=== PATIENT | male | born 1945 | race Caucasian/White ===

== ENCOUNTER → 2023-05-05 | Outpatient (CLI) | payer MEDICARE ==
[~2023-05-05] MED LIST: ATOR40TA69 PO; ESCI-8 PO; FERS325 PO; LOSA50TA64 PO; METO-408 PO; NORT25CA3 PO; NORT50CA PO; OXYC5TAB3 PO; TAMS-1 PO
== END | disposition home or self-care (01) ==
LOC: RAH 14:27 → EDUNIT# 14:30
PROVIDERS: ATTEND Internal Medicine Cardiovascular Disease
DX: I08.3 Combined rheumatic disorders of mitral, aortic and tricuspid valves (principal); R06.00 Dyspnea, unspecified; I49.5 Sick sinus syndrome; I77.810 Thoracic aortic ectasia
CPT/HCPCS: 93306

== ENCOUNTER 2023-05-06 09:29 | Day surgery (SDC) | payer MEDICARE ==
[2023-05-05 15:18] LABS: BASOPHILS # (AUTO) 0.07 K/uL (0.00-0.20); BASOPHILS % (AUTO) 0.7 % (0.0-5.0); EOSINOPHILS # (AUTO) 0.18 K/uL (0.00-0.70); EOSINOPHILS % (AUTO) 1.9 % (0.0-8.0); HEMATOCRIT 37.3 % (42-54); IMMATURE GRANULOCYTE ABSOLUTE 0.03 K/uL (0-1); LYMPHOCYTES % (AUTO) 31.4 % (21.0-51.0); MEAN CORPUSCULAR HEMOGLOBIN 34.7 pg (27.0-33.0); MEAN CORPUSCULAR HGB CONC 33.2 g/dL (32.0-36.0); MEAN CORPUSCULAR VOLUME 104.5 fL (79-99); MONOCYTES # (AUTO) 1.2 K/uL (0.1-1.0); MONOCYTES % (AUTO) 12.7 % (3.0-13.0); PLATELET COUNT (AUTO) 240 K/uL (130-400); RED BLOOD CELL COUNT(AUTO) 3.57 MIL/uL (4.50-6.20); WHITE BLOOD COUNT (AUTO) 9.5 K/uL (4.8-10.8)
[2023-05-05 15:25] VITALS: BP 165/75; PULSE 70; RESP 15
[2023-05-05 15:30] LABS: PARTIAL THROMBOPLASTIN TIME 26.1 SEC (26.3-35.5)
[2023-05-05 15:31] LABS: CREATININE 1.6 mg/dL (0.5-1.5); POTASSIUM 4.1 mmol/L (3.5-5.1)
[2023-05-05 15:50] LABS: INR 5.67 (0.85-1.15); PROTHROMBIN TIME 58.7 SEC (9.6-11.6)
[2023-05-05 16:29] LABS: INR 0.99 (0.85-1.15); PARTIAL THROMBOPLASTIN TIME 24.2 SEC (26.3-35.5); PROTHROMBIN TIME 10.7 SEC (9.6-11.6)
[2023-05-06] VITALS (10 sets, daily range): BP systolic 101–154; BP diastolic 55–80; PULSE 70–79; RESP 12–20
[~2023-05-06] VITALS: Ht 175.3 cm; Wt 106.3 kg
[~2023-05-06 09:29] MED LIST changes: -ATOR40TA69 PO; -ESCI-8 PO; -FERS325 PO; -LOSA50TA64 PO; -METO-408 PO; -NORT25CA3 PO; -NORT50CA PO; -OXYC5TAB3 PO
[2023-05-06] MEDS: 0.9%NACL 1000ML 1,000 ML IV ONE (10:51)
[2023-05-06] MEDS ORDERED: LOSA50TA64 PO (11:13)
[2023-05-06] MEDS ORDERED: NORT50CA PO (11:13)
[2023-05-06] MEDS ORDERED: ESCI-8 PO (11:13)
[2023-05-06] MEDS ORDERED: METO-408 PO (11:13)
[2023-05-06] MEDS ORDERED: ATOR40TA69 PO (11:13)
[2023-05-06] MEDS ORDERED: FERS325 PO (11:13)
[2023-05-06] MEDS ORDERED: NORT25CA3 PO (11:13)
[2023-05-06] MEDS ORDERED: OXYC5TAB3 PO (11:13)
[2023-05-06] MEDS ORDERED: MIDAZOLAM HCL 1 MG/ML 2ML VIAL ONE ×6 (14:19→17:24)
[2023-05-06] MEDS ORDERED: MEPERIDINE-PF 25 MG/ML SYG ONE ×6 (14:19→17:24)
[2023-05-06] MEDS ORDERED: LIDOCAINE HCL 1% MDV 50ML VIAL ONE ×2 (14:19→16:00)
[2023-05-06] MEDS ORDERED: BUPIVACAINE/PF 0.25% 30ML VIAL IJ ONE ×2 (14:19→16:00)
[2023-05-06] MEDS ORDERED: VANCOMYCIN 1G/250ML KIT 0 ML IV ONE (14:19)
[2023-05-06] MEDS ORDERED: IOHEXOL-350 50ML VIAL IV ONE ×3 (14:19→17:42)
[2023-05-06] MEDS ORDERED: CEFAZOLIN SODIUM 1 GM VIAL ONE (16:00)
[2023-05-06] MEDS ORDERED: VANCOMYCIN 1G/250ML KIT 500 ML IV ONE (16:21)
[2023-05-06] MEDS ORDERED: BACITRACIN 1 EACH PACKET TP ONE (17:59)
[2023-05-06] MEDS ORDERED: ONDANSETRON 4MG INJ ONE (18:56)
[2023-05-06] MEDS ORDERED: ONDANSETRON 4MG INJ IV PRN (19:00)
[2023-05-06] MEDS ORDERED: ACETAMINOPHEN 325 MG TAB PO PRN ×2 (19:00)
== END 2023-05-06 10:20 | disposition home or self-care (01) ==
LOC: DAH 09:29
PROVIDERS: ATTEND Internal Medicine Cardiovascular Disease
DX: I25.5 Ischemic cardiomyopathy (principal); I44.2 Atrioventricular block, complete; I11.0 Hypertensive heart disease with heart failure; I50.42 Chronic combined systolic (congestive) and diastolic (congestive) heart failure; I49.5 Sick sinus syndrome; I44.7 Left bundle-branch block, unspecified; J44.9 Chronic obstructive pulmonary disease, unspecified; G47.33 Obstructive sleep apnea (adult) (pediatric); E66.9 Obesity, unspecified; Z98.890 Other specified postprocedural states; Z82.49 Family history of ischemic heart disease and other diseases of the circulatory system; Z72.89 Other problems related to lifestyle; Z79.02 Long term (current) use of antithrombotics/antiplatelets; Z95.5 Presence of coronary angioplasty implant and graft; Z68.34 Body mass index [BMI] 34.0-34.9, adult
CPT/HCPCS: 80048; 85025; 85610; 85730; 36415; 93005; 33249; 33225; 33233; 71045; C1769 ×2; C1882; C1900; C1895; C1894; J7030; J0665; J2250 ×5; J2405; J3370; J2175 ×5; J3490; Q9967; A4215; A4222; A4221; A4663; A4216; A4606; A4223 ×3; 99156; 99157; J0690

== ENCOUNTER → 2023-06-17 | Outpatient (CLI) | payer MEDICARE ==
[~2023-06-17] MED LIST changes: +ATOR40TA69 PO; +ESCI-8 PO; +FERS325 PO; +LOSA50TA64 PO; +METO-408 PO; +NORT25CA3 PO; +NORT50CA PO
[2023-06-17 16:45] LABS: ALBUMIN 3.4 g/dL (3.5-5.0); BILIRUBIN,TOTAL 0.4 mg/dL (0.2-1.0); POTASSIUM 4.6 mmol/L (3.5-5.1); TOTAL PROTEIN, SERUM 7.6 g/dL (6.0-8.3)
== END | disposition home or self-care (01) ==
LOC: LAB 13:57
PROVIDERS: ATTEND Internal Medicine Cardiovascular Disease
DX: I25.10 Atherosclerotic heart disease of native coronary artery without angina pectoris (principal)
CPT/HCPCS: 36415; 80053

== ENCOUNTER → 2024-06-14 | Outpatient (CLI) | payer OTHER ==
[~2024-06-14] MED LIST changes: +GABA-1405 PO; -NORT25CA3 PO; -NORT50CA PO
--- NOTE | 2024-06-15 14:04 | HMCIMG ---
US AORTA LIMITED REASON: aaa w/o rupture. COMPARISON: None TECHNIQUE: Abdominal aorta ultrasound study was performed. FINDINGS: Proximal portion of abdominal aorta measures 1.5 x 2.5 cm, midportion measures 2.6 x 2 cm and distal portion measures 1.6 x 1.5 cm. No evidence of abdominal aortic aneurysm is seen. The study is limited due to overlying bowel gas. Right iliac artery measures 9 x 9 mm. Left iliac artery measures 7 x 7 mm. Peak systolic velocity of aorta is 111 cm/s, right iliac artery is 115 cm/s and left iliac artery is 99 cm/s. IMPRESSION: No evidence of abdominal aortic aneurysm is seen.
== END | disposition home or self-care (01) ==
LOC: RAH 09:56
PROVIDERS: ATTEND Internal Medicine Cardiovascular Disease
DX: I71.40 Abdominal aortic aneurysm, without rupture, unspecified (principal)
CPT/HCPCS: 76775